=== PATIENT | male | born 1970 | race Caucasian/White ===

== ENCOUNTER 2019-06-16 09:24 | Day surgery (SDC) | payer OTHER ==
[2019-06-16] VITALS (10 sets, daily range): BP systolic 135–177; BP diastolic 91–103; PULSE 52–78; RESP 14–20; Ht 160 cm; Wt 46.7 kg
[~2019-06-16] VITALS: Ht 160 cm; Wt 46.7 kg
[2019-06-16] MEDS ORDERED: SOD CHLORIDE 0.9% 1,000 ML IV ONE (11:00)
[2019-06-16] MEDS ORDERED: CEFAZOLIN 2 GM/50 ML (PMX) 50 ML IVPB SCH (11:00)
[2019-06-16] MEDS ORDERED: FENTAnyl 50 MCG/ML VIAL ONE (13:51)
[2019-06-16] MEDS ORDERED: MIDAZOLAM 1 MG/ML 2 ML INJ ONE (13:51)
[2019-06-16] MEDS ORDERED: PROPOFOL 20 ML ONE (13:51)
[2019-06-16] MEDS ORDERED: CEFAZOLIN 1 GM INJ ONE (13:51)
[2019-06-16] MEDS ORDERED: ROPIVACAINE 0.5 % 30 ML VIAL ONE (13:52)
[2019-06-16] MEDS ORDERED: ONDANSETRON 4 MG INJ IV PRN (15:00)
[2019-06-16] MEDS ORDERED: LABETALOL HCL 20MG INJ IV PRN (15:00)
[2019-06-16] MEDS ORDERED: MEPERIDINE 25 MG INJ IV PRN (15:00)
[2019-06-16] MEDS ORDERED: METOCLOPRAMIDE 10 MG INJ IV PRN (15:00)
[2019-06-16] MEDS ORDERED: HYDROmorphONE 1 MG/5 ML IV SYRINGE IV PRN ×3 (15:00)
[2019-06-16] MEDS ORDERED: EPHEDrine 25 MG/5 ML SYG IV PRN (15:00)
[2019-06-16] MEDS ORDERED: FENTAnyl 50 MCG/ML VIAL IV PRN ×3 (15:00)
[2019-06-16] MEDS ORDERED: OXYCODONE/ACETAMINOPHEN (5/325) TAB PO PRN (15:00)
[2019-06-16] MEDS ORDERED: DIPHENHYDRAMINE 50 MG INJ IV PRN (15:00)
[2019-06-16] MEDS ORDERED: ONDANSETRON 4 MG INJ ONE (15:43)
[2019-06-16] MEDS ORDERED: METOCLOPRAMIDE 10 MG INJ ONE (15:43)
[2019-06-16] MEDS ORDERED: KETOROLAC 30 MG INJ ONE (15:44)
[2019-06-16] MEDS ORDERED: DEXAMETHASONE 4 MG/ML 5 ML INJ ONE (15:44)
[2019-06-16] MEDS ORDERED: HYDROCODONE/APAP (5/325) TAB PO ONE (16:00)
== END 2019-06-16 17:47 | disposition home or self-care (01) ==
LOC: SDS 09:24
PROVIDERS: ATTEND Surgery
DX: K40.30 Unilateral inguinal hernia, with obstruction, without gangrene, not specified as recurrent (principal)
CPT/HCPCS: 49507; 71045; 80053; 85025; 85610; 85730; J0690; J1100; J1885; J2250; J2405; J2765; J2795; J3010; Z7610; C1781